=== PATIENT | male | born 1980 | race Caucasian/White ===

== ENCOUNTER 2024-04-05 14:40 | Outpatient (AMB) | payer OTHER, SELFPAY ==
--- NOTE | 2024-04-05 14:43 | MHC.OFFWIV ---
Intake Vital Signs 04/05/24 14:45 Height 6 ft Weight 214 lb BMI 29.0 BP 140/90 H Blood Pressure Location Rt brachial Position Sitting Pulse 95 Pulse Source Pulse Oximeter Pulse Oximetry (%) 95 Oxygen Delivery Method Room Air Intake Visit Reasons: EP- Infected RT knee cut Intake Note: Patient here for wound on right knee that happened at work and is now noticing redness around it and warm to the touch. Patient Tobacco Use Status: Never used Tobacco Allergies No Known Allergies Allergy (Verified 04/05/24 14:46) Do you need a note to return to daycare/school/sports/work: No HPI HPI Comments History of Present Illness Details Patient is a 43-year-old male complaining of right knee pain and a wound from a cut that he sustained at his workplace 5 days ago. He states it is now red and oozing a little bit and warm and getting painful. He has not done anything specific to try to make it better. 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 He does not know when his last tetanus was given. [facility] Social History Patient Tobacco Use Status: Never used Tobacco Review of Systems Const All systems reviewed & are unremarkable except as noted in HPI and below Physical Exam Vital Signs: Last Vital Signs Pulse 95 04/05/24 14:45 BP 140/90 H 04/05/24 14:45 Pulse Ox 95 04/05/24 14:45 Oxygen Delivery Method Room Air 04/05/24 14:45 BMI result Body Mass Index 29.0 Const General: cooperative, healthy appearing, comfortable, no acute distress and well developed Orientation/consciousness: patient oriented x3 Limitations: no limitations Skin Other: Right knee has 1 cm area of erythema, warmth and oozing scant amount of purulence. Full ROM in knee joint. Neuro General: patient oriented x3 Assessment & Plan Assessment & Plan (1) Cellulitis: Code(s): L03.90 - Cellulitis, unspecified Qualifiers: Laterality: right Site of cellulitis: extremity Site of cellulitis of extremity: lower extremity Qualified Code(s): L03.115 - Cellulitis of right lower limb Plan: Question of abscess forming, we will send doxycycline to pharmacy. Educated patient on risks and benefits doxycycline as well as precautions to stay out of the sun and take with food. Gave Tdap Plan See above Orders: Orders TDaP Immunization Today Z23 - Encounter for immunization Medications: New Boostrix Tdap (diphth,pertus(acell),tetanus) 0.5 mL IM ONCE 0.5 mL 0RF NS Z23 - Encounter for immunization doxycycline hyclate 100 mg PO BID 10 tabs 0RF Coding Level of Care Code New Pt Level 3 (59077) Diagnoses Cellulitis of right lower extremity L03.115 Laterality: right Site of cellulitis: extremity Site of cellulitis of extremity: lower extremity
[2024-04-05 14:45] VITALS: BP 140/90; PULSE 95; O2SAT 95; BMI 29.0
== END 2024-04-05 15:27 | disposition home or self-care (01) ==
PROVIDERS: PCP Internal Medicine; Visit Provider Physician Assistant
DX: Z23 Encounter for immunization (principal); L03.115 Cellulitis of right lower limb
CPT/HCPCS: 90471; 90715; 99203